=== PATIENT | male | born 1990 | race Caucasian/White ===

== ENCOUNTER 2023-08-24 15:58 | Outpatient (RCR) | payer BC ==
[~2023-08-24] VITALS: Ht 182.9 cm; Wt 70.9 kg
[2023-08-24 16:16] VITALS: BP 107/70; PULSE 60; TEMP 98.3
== END 2023-08-25 ==
LOC: EUO
DX: Z23 Encounter for immunization (principal); Z20.3 Contact with and (suspected) exposure to rabies